=== PATIENT | male | born 1990 | race African-American/Black ===

== ENCOUNTER 2021-06-07 22:03 | Emergency (ER) | payer MEDICARE, MEDICAID ==
[2021-06-08 17:43] LABS: SARS-CoV-2 PCR by NAA DETECTED (NotDetected)
== END 2021-06-07 22:50 | disposition home or self-care (01) ==
LOC: BURERS 22:03
DX: U07.1 COVID-19 (principal); J45.909 Unspecified asthma, uncomplicated; G40.909 Epilepsy, unspecified, not intractable, without status epilepticus; Z79.899 Other long term (current) drug therapy
CPT/HCPCS: U0003; U0005; 99283

== ENCOUNTER 2021-08-18 12:41 | Emergency (ER) | payer MEDICAID, MEDICARE | END 2021-08-18 13:00 | disposition home or self-care (01) | LOC: BURERS 12:41 | DX: H66.41 Suppurative otitis media, unspecified, right ear (principal); G40.909 Epilepsy, unspecified, not intractable, without status epilepticus; Z79.899 Other long term (current) drug therapy | CPT/HCPCS: 99282 ==

== ENCOUNTER 2024-05-01 19:05 | Emergency (ER) | payer MEDICAID, MEDICARE | END 2024-05-01 19:59 | disposition home or self-care (01) | LOC: BURERS 19:05 | DX: F41.9 Anxiety disorder, unspecified (principal) | CPT/HCPCS: 93005 ==